=== PATIENT | male | born 1960 | race Caucasian/White ===

== ENCOUNTER 2023-09-22 18:57 | Emergency (ER) | payer MEDICAID ==
[~2023-09-22] VITALS: Ht 175.3 cm; Wt 65.8 kg
[2023-09-22 19:15] VITALS: BP 135/80; PULSE 82; TEMP 98; O2SAT 98
[2023-09-22] MEDS ORDERED: insulin Lispro (HumaLOG) vial - multi-dose SQ ONE (19:40)
[2023-09-22 19:42] LABS: BASOPHILS # (AUTO) 0.1 X10'3 (0-0.2); BASOPHILS % (AUTO) 0.7 % (0-1); EOSINOPHILS # (AUTO) 0.2 X10'3 (0-0.9); EOSINOPHILS % (AUTO) 2.5 % (0-6); HEMATOCRIT 42.3 % (42.0-52.0); HEMOGLOBIN 14.5 g/dl (14.0-17.9); LYMPHOCYTES # (AUTO) 2.6 X10'3 (1.1-4.8); LYMPHOCYTES % (AUTO) 29.2 % (21-51); MEAN CORPUSCULAR HEMOGLOBIN 30.9 PG (27.0-31.0); MEAN CORPUSCULAR HGB CONC 34.4 g/dL (33.0-36.5); MEAN CORPUSCULAR VOLUME 89.8 FL (78-98); MEAN PLATELET VOLUME 7.6 FL (7.4-10.4); MONOCYTES # (AUTO) 0.8 X10'3 (0-0.9); MONOCYTES % (AUTO) 9.3 % (2-12); NEUTROPHILS # (AUTO) 5.1 X10'3 (1.8-7.7); NEUTROPHILS % (AUTO) 58.3 % (42-75); PLATELET COUNT 295 X10'3 (140-440); RED BLOOD COUNT 4.71 X10'6 (4.70-6.10); RED CELL DISTRIBUTION WIDTH 13.8 % (11.5-14.5); WHITE BLOOD COUNT 8.8 X10'3 (4.5-11.0)
[2023-09-22] MEDS: normal saline 1000ML IV soln IVB ONE (20:00)
[2023-09-22 20:02] LABS: ALANINE AMINOTRANSFERASE 27 U/L (12-78); ALBUMIN 3.7 G/DL (3.4-5.0); ALKALINE PHOSPHATASE 117 IU/L (46-116); ANION GAP 11 (8-16); ASPARTATE AMINO TRANSFERASE 13 U/L (10-37); BILIRUBIN,TOTAL 0.3 MG/DL (0.1-1.0); BLOOD UREA NITROGEN 21 MG/DL (7-18); BUN/CREATININE RATIO 16.2 (10.0-20.0); CALCIUM 8.8 MG/DL (8.5-10.1); CHLORIDE 95 MMOL/L (99-107); POTASSIUM 4.3 MMOL/L (3.5-5.1); SODIUM 134 MMOL/L (135-145); TOTAL CARBON DIOXIDE 28.5 MMOL/L (24-32); TOTAL PROTEIN 7.4 G/DL (6.4-8.2); eCRCL 56 ML/MIN; eGFR 56 ML/MIN
[2023-09-22] MEDS: insulin regular, human 10 units/0.1 ml syringe SQ ONE (20:05)
[2023-09-22 20:07] LABS: GLUCOSE 482 MG/DL (70-104)
[2023-09-22 21:38] VITALS: RESP 16
[2023-09-22] MEDS: ketorolac trometh. 30mg/ml inj. IV ONE (21:38)
[2023-09-22] MEDS: insulin Lispro (HumaLOG) vial - multi-dose SQ ONE (21:59)
== END 2023-09-23 00:21 | disposition home or self-care (01) ==
LOC: ER 18:58
DX: E11.65 Type 2 diabetes mellitus with hyperglycemia (principal); E86.0 Dehydration
CPT/HCPCS: 36415; 80053; 82948; 84484; 85025; 96361; 96372; 96374; 99284; J1815; J1885; J7030

== ENCOUNTER 2023-10-10 15:05 | Outpatient (CLI) | payer MEDICAID | END 2023-10-10 23:59 | disposition home or self-care (01) | LOC: VAS 15:05 | PROVIDERS: ATTEND Nurse Practitioner Family | DX: I65.21 Occlusion and stenosis of right carotid artery (principal); I99.8 Other disorder of circulatory system | CPT/HCPCS: 93926 ==